=== PATIENT | male | born 1985 | race Two or more races ===

== ENCOUNTER 2018-11-05 19:09 | Emergency (ER) | payer SELFPAY ==
[2018-11-05 19:24] VITALS: BP 159/92; PULSE 89; RESP 18; O2SAT 95
[2018-11-05 19:48] VITALS: TEMP 99.4
--- NOTE | 2018-11-05 19:59 | ED PDOC ---
HPI: General Adult Time Seen by Provider: 11/05/18 19:48 Chief Complaint (Nursing): Medical Clearance Chief Complaint (Provider): Medical Clearance History Per: Patient History/Exam Limitations: no limitations Onset/Duration Of Symptoms: Mins Current Symptoms Are (Timing): Still Present Additional Complaint(s): Patient is a 33 y/o male with no significant PMHx who was brought in by EMS to the ED for evaluation of left shoulder pain onset prior to arrival. Patient was resisting arrest and in the process hurt his shoulder. Patient states his shoulder pain is exacerbated on movement. Patient denies any further medical complaints. [employer] is accompanying patient at bedside. PCP: None Provided Past Medical History Reviewed: Historical Data, Nursing Documentation, Vital Signs Vital Signs: Last Vital Signs Temp 99.4 F 11/05/18 19:22 Pulse 89 11/05/18 19:22 Resp 18 11/05/18 19:22 BP 159/92 H 11/05/18 19:22 Pulse Ox 95 11/05/18 19:22 - Medical History PMH: No Chronic Diseases - Surgical History Surgical History: No Surg Hx - Family History Family History: States: No Known Family Hx - Social History Alcohol: Occasional Drugs: Denies - Allergies Allergies/Adverse Reactions: Allergies Allergy/AdvReac Type Severity Reaction Status Date / Time No Known Allergies Allergy Verified 11/05/18 19:22 Review of Systems ROS Statement: Except As Marked, All Systems Reviewed And Found Negative Musculoskeletal: Positive for: Shoulder Pain (left) Physical Exam - Reviewed Nursing Documentation Reviewed: Yes Vital Signs Reviewed: Yes - Physical Exam Appears: Positive for: No Acute Distress Head Exam: Positive for: ATRAUMATIC, NORMAL INSPECTION, NORMOCEPHALIC Skin: Positive for: Normal Color, Warm, DRY Eye Exam: Positive for: EOMI, Normal appearance, PERRL Neck: Positive for: Normal, Painless ROM, Supple Cardiovascular/Chest: Positive for: Regular Rate, Rhythm. Negative for: Murmur Respiratory: Positive for: Normal Breath Sounds. Negative for: Respiratory Distress Gastrointestinal/Abdominal: Positive for: Normal Exam, Soft. Negative for: Tenderness Back: Positive for: Normal Inspection. Negative for: L CVA Tenderness, R CVA Tenderness, Vertebral Tenderness Extremity: Positive for: Normal ROM, Tenderness (left shoulder and AC joint). Negative for: Pedal Edema, Deformity, Other (clavicular tenderness) Neurological/Psych: Positive for: Alert, Oriented (x3) - ECG O2 Sat by Pulse Oximetry: 95 (RA) Pulse Ox Interpretation: Normal Medical Decision Making Medical Decision Making: Time: 1950 Impression: Left Shoulder Pain Plan: Left Shoulder [Rad] Time: 1999 Wet Read: Left shoulder xray shows no dislocations, separations, or fractures. No acute pathologies noted. Scribe Attestation: Documented by Mathew Daigle, acting as a scribe Abdi Rhodes PA-C Provider Scribe Attestation: All medical record entries made by the Scribe were at my direction and personally dictated by me. I have reviewed the chart and agree that the record accurately reflects my personal performance of the history, physical exam, medical decision making, and the department course for this patient. I have also personally directed, reviewed, and agree with the discharge instructions and disposition. Disposition - Clinical Impression Clinical Impression: Shoulder pain, acute - Disposition Disposition: Discharged/Transfer to Law Enforcement Disposition Time: 20:05 (Back to law enforcement personel) Condition: STABLE Instructions: General (DC), Shoulder Pain (DC) Forms: [employer] (Amharic)
--- NOTE | 2018-11-06 13:01 | RAD ---
Date of service: 11/05/2018 PROCEDURE: Radiographs of the Left Shoulder HISTORY: Shoulder pain COMPARISON: No prior. TECHNIQUE: 3 views obtained. FINDINGS: BONES: Normal. No fracture. JOINTS: Mild degenerative osteoarthritis left glenohumeral joint. SOFT TISSUES: Normal. OTHER FINDINGS: None. IMPRESSION: No definitive radiographic evidence of acute displaced fracture nor dislocation. Mild degenerative osteoarthritis. If symptoms persist or occult fracture suspected clinically consider follow-up MRI.
== END 2018-11-05 20:10 ==
LOC: H.ER 19:09
DX: M25.512 Pain in left shoulder